=== PATIENT | male | born 1965 | race Native Hawaiian/Other Pacific Islander ===

== ENCOUNTER 2022-02-27 07:51 | Outpatient (CLI) | payer BC | END 2022-02-27 18:56 | disposition home or self-care (01) | LOC: RAD 07:51 | PROVIDERS: ATTEND Nurse Practitioner Family | DX: M25.512 Pain in left shoulder (principal); M25.511 Pain in right shoulder ==

== ENCOUNTER 2022-05-06 19:28 | Emergency (ER) | payer BC ==
[~2022-05-06] VITALS: Ht 170.2 cm; Wt 120.2 kg
[2022-05-06 23:02] VITALS: BP 159/91; TEMP 98.5
== END 2022-05-06 23:02 | disposition home or self-care (01) ==
LOC: ED 19:28
DX: M54.31 Sciatica, right side (principal)
CPT/HCPCS: 96372; 99283; J1885; J2270; J2405